=== PATIENT | female | born 1960 | race Caucasian/White ===

== ENCOUNTER 2024-04-12 08:00 | Outpatient (CLI) | payer BC ==
[2024-04-12 18:15] LABS: CREATININE,URINE 18.6 mg/dL; MICROALBUMIN,URINE < 0.7 mg/dL
== END 2024-04-12 23:59 | disposition home or self-care (01) ==
LOC: LAB.WCP 08:00
PROVIDERS: ATTEND Nurse Practitioner
DX: N18.31 Chronic kidney disease, stage 3a (principal)
CPT/HCPCS: 82043; 82570